=== PATIENT | female | born 1990 | race Caucasian/White ===

== ENCOUNTER 2017-09-16 13:20 | Emergency (ER) | payer OTHER ==
[2017-09-16 13:31] VITALS: BP 139/57
[2017-09-16] MEDS ORDERED: HYDROcod/ACETAM 5/325 MG TABLET PO STA (13:41)
--- NOTE | 2017-09-16 13:44 | ED Physician Documentation ---
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 The back pain continues and is worse when she is moving around but insignificant at rest, the leg pain is gone. There is no weakness, numbness, tingling, saddle anesthesia, fever.) Review of Systems Constitutional: denies: Fever, Chills GI: denies: Abdominal Pain, Nausea, Vomiting, Diarrhea : denies: Now EGA Musculoskeletal: denies: Neck pain PD PAST MEDICAL HISTORY - Past Medical History Past Medical History: No Cardiovascular: None Respiratory: None Musculoskeletal: None - Past Surgical History Past Surgical History: Yes - Present Medications Home Medications: Ambulatory Orders Medication Instructions Recorded Confirmed HYDROcod/ACETAM 5/325 [[place] 5/325] 1 - 2 ea PO Q6H PRN #20 tablet 03/03/16 HYDROcod/ACETAM 5/325 [[place] 5/325] 1 - 2 ea PO Q6H PRN #15 tablet 09/16/17 predniSONE [Deltasone] 20 mg PO [id number] #21 tab 09/16/17 - Allergies Allergies/Adverse Reactions: Allergies Allergy/AdvReac Type Severity Reaction Status Date / Time sertraline HCl * Allergy Unknown Verified 09/16/17 13:31 [From Zoloft] Penicillins AdvReac Anaphylaxis Verified 09/16/17 13:31 - Social History Does the pt smoke?: No Smoking Status: Never smoker Does the pt drink ETOH?: Yes ETOH Use: Beer, Liquor Does the pt have substance abuse?: No - Immunizations Immunizations are current?: Yes - POLST Patient has POLST: No PD ED PE NORMAL - Vitals Vital signs reviewed: Yes - General General: Alert and oriented X 3, No acute distress - Abdomen Abdomen: Normal bowel sounds, Soft, Non tender - Back Back: No spinal TTP, Other (Palpable spasm in the right lower back that is tender. The patient has equal and normal Achilles and patellar reflexes bilaterally. Normal sensation in all areas of the legs. Patient denies saddle anesthesia. Normal strength in flexion-extension at the ankles, knees, and flexion of the hips.) - Neuro Neuro: Alert and oriented X 3, Normal speech Results - Vitals Vitals: Vital Signs - 24 hr 09/16/17 13:29 Temperature 36.1 C L Heart Rate 87 Respiratory 18 Rate Blood Pressure 139/57 H O2 Saturation 100 Oxygen O2 Source Room air PD MEDICAL DECISION MAKING - ED course ED course: This patient has seemingly uncomplicated musculoskeletal back pain. The patient has no "red flags." Specifically denies IV drug use, fevers, incontinence, saddle anesthesia. Spinal epidural abscess was considered, given that the patient has no fever, is not diabetic, has no spinal tenderness, does not use IV drugs, and has no bilateral neurologic symptoms, the diagnosis of spinal epidural abscess is considered exceedingly unlikely. The [place] prescription monitoring program was queried with regard to this patient. No concerning findings were found. Departure - Departure Disposition: 01 Home, Self Care Clinical Impression: Back pain Qualifiers: Back pain location: low back pain Chronicity: acute Back pain laterality: right Sciatica presence: without sciatica Qualified Code(s): M54.5 - Low back pain Condition: Good Record reviewed to determine appropriate education?: Yes Instructions: ED Low Back Pain Injury Prescriptions: HYDROcod/ACETAM 5/325 [[place] 5/325] 1 - 2 ea PO Q6H PRN #15 tablet PRN Reason: Pain predniSONE [Deltasone] 20 mg PO [id number] #21 tab Comments: Call your doctor to arrange a follow-up appointment, make the next available appointment. In the interim, return anytime if worse or if new symptoms develop. Do not drink or drive while taking narcotic pain medication. Note that many narcotic pain relievers also contain Tylenol/acetaminophen. Please ensure that your total dose of acetaminophen from all sources does not exceed 3 g (3000 mg) per day. You may get constipated while on this medication. Take a stool softener such as Colace twice a day while you are on it. Also add an [id number] laxative such as senna or MiraLAX on any day that you do not have a bowel movement. If you received a narcotic pain medication or sedative while in the emergency department, do not drive for the next 24 hours. Your blood pressure was elevated today on check into the emergency department. This does not mean that you have hypertension, it is a common phenomenon to come to the emergency department and have elevated blood pressure. I recommend that you see your primary care physician within the week to have it rechecked when you are feeling better.
== END 2017-09-16 13:46 | disposition home or self-care (01) ==
LOC: ED 13:20
DX: M54.5 Low back pain (principal); R03.0 Elevated blood-pressure reading, without diagnosis of hypertension
CPT/HCPCS: 99283; A9270

== ENCOUNTER 2018-04-22 19:43 | Emergency (ER) | payer OTHER ==
[2018-04-22] MEDS ORDERED: IBUPROFEN 600 MG TABLET PO STA (20:20)
[2018-04-22] MEDS ORDERED: ALBUTEROL NEB 2.5 MG/3 ML INH STA (20:20)
[2018-04-22] MEDS ORDERED: DEXAMETHASONE 10 MG/ML VIAL PO STA (20:20)
--- NOTE | 2018-04-22 20:24 | ED Physician Documentation ---
History of Present Illness - Stated complaint Stated Complaint: DIZZY/NAUS/SCRATCHY THROAT - Chief complaint Chief Complaint: General - History obtained from History obtained from: Patient, Friend - History of Present Illness Timing: Today - Additonal information Additional information: Patient is a 28 year old female with no significant past medical history who is presenting to the emergency department for cough, dizziness and generalized weakness. Patient states that she was at work and was trying to tie down a tarp and felt too weak. Patient reports that since the smoke picked up today she started to feel worse with a cough and sore throat. Review of Systems Constitutional: denies: Fever, Chills Eyes: reports: Reviewed and negative Ears: reports: Reviewed and negative Throat: reports: Sore throat Respiratory: reports: Cough. denies: Dyspnea GI: reports: Abdominal Pain, Nausea. 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 : None HEENT: None Psych: None Musculoskeletal: None Derm: Other Other Past Medical History: acne - Past Surgical History Past Surgical History: Yes - Allergies Allergies/Adverse Reactions: Allergies Allergy/AdvReac Type Severity Reaction Status Date / Time sertraline HCl * Allergy Unknown Verified 04/22/18 20:02 [From Zoloft] Penicillins AdvReac Anaphylaxis Verified 04/22/18 20:02 - Social History Does the pt smoke?: No Smoking Status: Never smoker Does the pt drink ETOH?: Yes Does the pt have substance abuse?: No - Immunizations Immunizations are current?: Yes - POLST Patient has POLST: No PD ED PE NORMAL - Vitals Vital signs reviewed: Yes - General General: Alert and oriented X 3, No acute distress - HEENT HEENT: Atraumatic, PERRL - Neck Neck: No adenopathy - Cardiac Cardiac: RRR - Respiratory Respiratory: No respiratory distress - Abdomen Abdomen: Soft, Non tender, Non distended - Derm Derm: Normal color, Warm and dry, No rash - Extremities Extremities: No deformity - Neuro Neuro: Alert and oriented X 3, No motor deficit, No sensory deficit, Normal speech Eye Opening: Spontaneous Motor: Obeys Commands Verbal: Oriented GCS Score: 15 PD ED PE EXPANDED - HEENT HEENT: Pharyngeal erythema Results - Vitals Vitals: Vital Signs - 24 hr 04/22/18 04/22/18 04/22/18 19:56 20:36 21:09 Temperature 36.2 C L 36.9 C Heart Rate 106 H 118 H 114 H Respiratory 16 18 17 Rate Blood Pressure 150/87 H 142/87 H O2 Saturation 98 99 Oxygen O2 Source Room air - Labs Labs: Laboratory Tests 04/22/18 04/22/18 04/22/18 20:29 20:29 20:46 WBC 6.2 RBC 4.61 Hgb 13.9 Hct 41.3 MCV 89.6 MCH 30.2 MCHC 33.7 RDW 13.5 Plt Count 262 MPV 8.1 Neut # (Auto) 4.2 Lymph # (Auto) 1.4 L [place] # (Auto) 0.4 Eos # (Auto) 0.1 Baso # (Auto) 0.1 Absolute Nucleated RBC 0.00 Nucleated RBC % 0.1 Sodium 138 Potassium 3.9 Chloride 104 Carbon Dioxide 25 Anion Gap 9.0 BUN 13 Creatinine 0.9 Estimated GFR (MDRD) 74 L Glucose 111 H Calcium 9.0 Total Bilirubin 0.4 AST 19 ALT 16 Alkaline Phosphatase 69 Total Protein 7.6 Albumin 4.3 Globulin 3.3 Albumin/Globulin Ratio 1.3 Lipase 40 Urine Color YELLOW Urine Clarity CLEAR Urine pH 5.5 Ur Specific [place] 1.020 Urine Protein NEGATIVE Urine Glucose (UA) NEGATIVE Urine Ketones NEGATIVE Urine Occult Blood NEGATIVE Urine Nitrite NEGATIVE Urine Bilirubin NEGATIVE Urine Urobilinogen 0.2 (NORMAL) Ur Leukocyte Esterase NEGATIVE Ur Microscopic Review NOT INDICATED Urine Culture Comments NOT INDICATED Urine HCG, Qual NEGATIVE PD MEDICAL DECISION MAKING - ED course Complexity details: reviewed old records, reviewed results, re-evaluated patient , considered differential, d/w patient ED course: Patient was seen and examined at bedside. Patient was well appearing and in no distress. patient's diagnostics showed no significant abnormalities. Patient required no further work up at this time and was stable for discharge with outpatient follow up. - Sepsis Event Vital Signs: Vital Signs - 24 hr 04/22/18 04/22/18 04/22/18 19:56 20:36 21:09 Temperature 36.2 C L 36.9 C Heart Rate 106 H 118 H 114 H Respiratory 16 18 17 Rate Blood Pressure 150/87 H 142/87 H O2 Saturation 98 99 Oxygen O2 Source Room air Departure - Departure Disposition: 01 Home, Self Care Clinical Impression: URI (upper respiratory infection) Condition: Good Instructions: ED Smoke Inhalation Follow-Up: ANA LAURA GARCIA MD [Primary Care Provider] - Comments: Your diagnostics today are within normal limits. there are no acute abnormalities on your blood and urine. You should stay well hydrated and get plenty of rest. You should follow up with your doctor if your symptoms persist. You may return to the emergency department at any time for new, worsening or uncontrollable symptoms. Forms: Activity restrictions Discharge Date/Time: 04/22/18 21:30
[2018-04-22] MEDS ORDERED: CHERRY SYRUP 10 ML UDC PO ONE (20:26)
[2018-04-22 20:40] LABS: BASOPHILS # (AUTO) 0.1 10^3/uL (0.0-0.1); BASOPHILS % (AUTO) 1.5 %; EOSINOPHILS # (AUTO) 0.1 10^3/uL (0.0-0.7); EOSINOPHILS % (AUTO) 2.2 %; HGB - HEMOGLOBIN 13.9 g/dL (12.0-16.0); LYMPHOCYTES # (AUTO) 1.4 10^3/uL (1.5-3.5); LYMPHOCYTES % (AUTO) 22.7 %; MEAN CORPUSCULAR HEMOGLOBIN 30.2 pg (27.0-31.0); MEAN CORPUSCULAR HGB CONC 33.7 g/dL (32.0-36.0); MEAN CORPUSCULAR VOLUME 89.6 fL (81.0-99.0); MEAN PLATELET VOLUME 8.1 fL (7.9-10.8); MONOCYTES # (AUTO) 0.4 10^3/uL (0.0-1.0); MONOCYTES % (AUTO) 5.8 %; NEUTROPHILS # (AUTO) 4.2 10^3/uL (1.5-6.6); NEUTROPHILS % (AUTO) 67.8 %; PLT - PLATELET COUNT 262 10^3/uL (130-450); RED BLOOD COUNT 4.61 10^6/uL (4.20-5.40); RED CELL DISTRIBUTION WIDTH 13.5 % (12.0-15.0); WHITE BLOOD COUNT 6.2 x10^3/uL (4.8-10.8)
[2018-04-22 20:45] LABS: ALBUMIN 4.3 g/dL (3.2-5.5); ALBUMIN/GLOBULIN RATIO 1.3 (1.0-2.2); BILIRUBIN,TOTAL 0.4 mg/dL (0.2-1.0); CREATININE 0.9 mg/dL (0.4-1.0); TOTAL PROTEIN 7.6 g/dL (6.7-8.2)
[2018-04-22 20:52] LABS: BILIRUBIN,URINE NEGATIVE (NEGATIVE); GLUCOSE, URINE (UA) NEGATIVE (NEGATIVE); KETONES,URINE (UA) NEGATIVE (NEGATIVE); LEUKOCYTE ESTERASE, URINE NEGATIVE (NEGATIVE); NITRITE,URINE NEGATIVE (NEGATIVE); OCCULT BLOOD,URINE NEGATIVE (NEGATIVE); PH,URINE 5.5 PH (5.0-7.5); PROTEIN,URINE NEGATIVE (NEGATIVE); UROBILINOGEN,URINE 0.2 (NORMAL) E.U./dL (NORMAL)
[2018-04-22 20:55] LABS: CLARITY,URINE CLEAR (CLEAR); HCG UR QUAL NEGATIVE
[2018-04-22 21:11] VITALS: BP 142/87
== END 2018-04-22 21:30 | disposition home or self-care (01) ==
LOC: ED 19:43
DX: J06.9 Acute upper respiratory infection, unspecified (principal)
CPT/HCPCS: 36415; 80053; 81003; 81025; 83690; 85025; 94640; 99283; A9270; 81001; 87086

== ENCOUNTER 2019-12-15 11:55 | Emergency (ER) | payer OTHER ==
[2019-12-15 12:03] VITALS: BP 127/72
--- NOTE | 2019-12-15 12:14 | ED Physician Documentation ---
PD HPI OPHTHO - Stated complaint Stated Complaint: RT EYE PX - Chief complaint Chief Complaint: Heent - History obtained from History obtained from: Patient - History of Present Illness Timing - onset: Yesterday Timing - duration: Days (1) Timing - details: Abrupt onset, Still present Location: Right Quality / character: Aching Associated symptoms: FB sensation. No: Redness, Discharge, Decreased vision, Loss of vision Contributing factors: FB (She was redirected yesterday with some protective glasses on but a small object still came in to her right eye. She thought she blinked it out but is still felt uncomfortable. She irrigated the eye later but continue with an irritation feeling in the upper medial aspect of the right eye. This continued into this morning so here for evaluation. She previously wore contacts but did not have the right prescription so has not had any for over 6 months. She just wears her regular classes.). No: Recent URI, Wears contacts Similar symptoms before: Has not had sx before Review of Systems Constitutional: denies: Fever, Chills Eyes: reports: Irritation. 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 12/15/19 Ophthalmic Ointment] - Allergies Allergies/Adverse Reactions: Allergies Allergy/AdvReac Type Severity Reaction Status Date / Time sertraline HCl * Allergy Unknown Verified 04/22/18 20:02 [From Zoloft] Penicillins AdvReac Anaphylaxis Verified 04/22/18 20:02 - Social History Does the pt smoke?: No Smoking Status: Never smoker Does the pt drink ETOH?: Yes Does the pt have substance abuse?: No - Immunizations Immunizations are current?: Yes - POLST Patient has POLST: No PD ED PE NORMAL - Vitals Vital signs reviewed: Yes - General General: Alert and oriented X 3, No acute distress, Well developed/nourished - HEENT HEENT: PERRL, EOMI, Moist mucous membranes, Pharynx benign - Neck Neck: Supple, no meningeal sign, No adenopathy PD ED PE EXPANDED - Eyes Eyes: No eyelid FB (everted), Corneal abrasion (small linear abrasion at 2 o'clock position. NO FB seen. ), Fluorescein uptake, Anterior chambers clear, Normal fundi. No: Corneal FB Results - Vitals Vitals: Vital Signs - 24 hr 12/15/19 12:00 Temperature 36.9 C Heart Rate 81 Respiratory 18 Rate Blood Pressure 127/72 O2 Saturation 100 Oxygen O2 Source Room air PD MEDICAL DECISION MAKING - ED course Complexity details: considered differential, d/w patient Departure - Departure Disposition: 01 Home, Self Care Clinical Impression: Corneal abrasion Qualifiers: Encounter type: initial encounter Laterality: right Qualified Code(s): S05.01XA - Injury of conjunctiva and corneal abrasion without foreign body, right eye, initial encounter Condition: Stable Record reviewed to determine appropriate education?: Yes Instructions: ED Eye Injury Corneal Abrasion Follow-Up: [place] MEYER MD [Primary Care Provider] - Prescriptions: Erythromycin Base [Erythromycin Ophthalmic Ointment] 1 applic OP QID #3.5 oint...g. Comments: There is a small abrasion on the eye. I do not see any foreign body still. The abrasion should heal up well for a day or 2. Treated with lubricating eyedrops Tylenol or ibuprofen as needed for discomfort. You can add erythromycin eye ointment every 2-3 hours if needed to provide some comfort over the eye as it coats the surface of it. In the short-term there would be more for the ointment effect. Otherwise if you develop redness purulence or swelling from the eye, then concern would be for infection in the erythromycin ointment would be useful at that point for the antibiotic portion. I would anticipate improvement and resolution over the next couple of days. Discharge Date/Time: 12/15/19 12:44
[2019-12-15] MEDS ORDERED: ERYTHROMYCIN OPHTH OINT 1 GM TUBE RIGHTEYE STA (12:34)
[2019-12-15] MEDS ORDERED: IBUPROFEN 600 MG TABLET PO STA (12:35)
== END 2019-12-15 12:44 | disposition home or self-care (01) ==
LOC: ED 11:55
DX: S05.01XA Injury of conjunctiva and corneal abrasion without foreign body, right eye, initial encounter (principal)
CPT/HCPCS: 99282; 99283; A9270; J3490

== ENCOUNTER 2020-05-05 18:36 | Emergency (ER) | payer OTHER ==
[2020-05-05 18:44] VITALS: BP 132/77
--- NOTE | 2020-05-05 19:10 | ED Physician Documentation ---
History of Present Illness - Stated complaint Stated Complaint: LT EAR PX - Chief complaint Chief Complaint: General - History obtained from History obtained from: Patient - History of Present Illness Timing: Prior to arrival - Additonal information Additional information: 30-year-old female presents to the emergency department with 1 week of muffled hearing and increased pressure in the left ear. Symptoms began 1 week ago during [place] where they could not properly pressurize the cabin. Over time she has been attempting the Valsalva maneuver with minimal relief. She denies fevers cough congestion headache vomiting or dizziness. Review of Systems Constitutional: denies: Fever, Chills Ears: reports: Ear pain, Tinnitus/ringing. denies: Loss of hearing, Drainage/discharge, Foreign body Nose: denies: Rhinorrhea / runny nose, Congestion Throat: denies: Dental pain / toothache, Oral lesions / sores, Swollen tonsils Cardiac: denies: Chest pain / pressure, Palpitations, Pedal edema, Calf pain Respiratory: denies: Dyspnea, Cough GI: denies: Abdominal Pain, Abdominal Swelling, Nausea, Vomiting : denies: Dysuria Skin: denies: Rash, Lesions Musculoskeletal: denies: Neck pain, Back pain, Joint pain PD PAST MEDICAL HISTORY - Past Medical History Cardiovascular: None Respiratory: Sleep apnea Neuro: Head injury, Headaches, Migraines Endocrine/Autoimmune: None GI: None 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 12/15/19 Ophthalmic Ointment] Fluticasone [Flonase] 1 sprays RICAH DAILY #1 bottle 05/05/20 diphenhydrAMINE [Benadryl] 50 mg PO HS #15 capsule 05/05/20 - Allergies Allergies/Adverse Reactions: Allergies Allergy/AdvReac Type Severity Reaction Status Date / Time sertraline HCl * Allergy Unknown Verified 04/22/18 20:02 [From Zoloft] Penicillins AdvReac Anaphylaxis Verified 04/22/18 20:02 - Social History Does the pt smoke?: No Smoking Status: Never smoker Does the pt drink ETOH?: Yes ETOH Use: Wine, Liquor Does the pt have substance abuse?: No - Immunizations Immunizations are current?: Yes - POLST Patient has POLST: No PD ED PE EXPANDED - General General: Alert, No acute distress - HEENT HEENT: L TM retracted, Moist mucous membranes, Pharynx normal, Other (Left TM retracted. No effusion. EAC on the left ear and unremarkable. Right ear TM and right EAC unremarkable). No: L TM loss of landmarks, Right frontal sinus TTP, Left frontal sinus TTP, Right maxillary sinus TTP, Left maxillary sinus T TP, Nasal congestion - Eyes Eyes: PERRL - Neck Neck: Supple w/out meningeal sx. No: Adenopathy - Cardiac Cardiac: Regular Rate, Regular Rhythm, Cap refill < 2 sec - Respiratory Respiratory: Clear to ausultation karyn. No: Distress, Labored - Abdomen Abdomen: Normal Bowel sounds. No: Tender to palpation Results - Vitals Vitals: Vital Signs - 24 hr 05/05/20 18:38 Temperature 36.6 C Heart Rate 91 Respiratory 16 Rate Blood Pressure 132/77 H O2 Saturation 100 Oxygen O2 Source Room air PD MEDICAL DECISION MAKING - ED course Complexity details: reviewed results, considered differential, d/w patient ED course: 30-year-old female presents to the emergency department for evaluation of muffled hearing and pressure in the left ear for nearly 1 week. This followed a transport in which she reports they had difficulty properly pressurizing the plane. On exam she does have a retracted TM but there is no effusion behind it. She has had no fevers and there are no other secondary signs of infection. I suspect that the etiology of her symptoms is secondary to eustachian tube plugging. I will recommend some Benadryl for nocturnal use as well as Flonase once a day. Patient is to return to the ER if her symptoms do not improve with this treatment and I also advise close follow-up with base physician Departure - Departure Disposition: 01 Home, Self Care Clinical Impression: Eustachian tube dysfunction Qualifiers: Laterality: left Qualified Code(s): H69.82 - Other specified disorders of Eustachian tube, left ear Condition: Stable Record reviewed to determine appropriate education?: Yes Instructions: ED Obstruction Eustachian Tube Ch Prescriptions: diphenhydrAMINE [Benadryl] 50 mg PO HS #15 capsule Fluticasone [Flonase] 1 sprays RICHA DAILY #1 bottle Comments: Darlene I believe that the pressure and pain in your left ear is most likely due to a plugged eustachian tube. I would like to recommend that you continue to practice the Valsalva maneuvers but they may be more effective after taking a dose or 2 of Benadryl as well as using the Flonase. If your symptoms are not improving, you have fevers worsening pain or any ear drainage please return to the emergency department for a second evaluation
== END 2020-05-05 19:15 | disposition home or self-care (01) ==
LOC: ED 18:36
DX: H69.82 Other specified disorders of Eustachian tube, left ear (principal)
CPT/HCPCS: 99282; 99284